=== PATIENT | female | born 1980 ===

== ENCOUNTER 2021-01-08 11:10 | Emergency (ER) | payer SELFPAY ==
[2021-01-08 11:23] VITALS: BP 115/73
== END 2021-01-08 12:45 | disposition left against medical advice (07) ==
LOC: ED 11:10
DX: K14.9 Disease of tongue, unspecified (principal); Z53.21 Procedure and treatment not carried out due to patient leaving prior to being seen by health care provider

== ENCOUNTER 2021-09-24 17:46 | Emergency (ER) | payer SELFPAY | END 2021-09-25 00:05 | disposition left against medical advice (07) | LOC: ED 17:46 | DX: Z13.30 Encounter for screening examination for mental health and behavioral disorders, unspecified (principal); Z53.21 Procedure and treatment not carried out due to patient leaving prior to being seen by health care provider ==